=== PATIENT | male | born 1980 | race Caucasian/White ===

== ENCOUNTER 2023-06-20 05:03 | Emergency (ER) | payer OTHER, MEDICAID, SELFPAY ==
--- NOTE | 2023-06-20 05:08 | ED_ITS ---
HPI - General Adult General Chief complaint: Upper Respiratory Symptoms Stated complaint: sore throat t-3 has been out of us Time Seen by Provider: 06/20/23 05:05 Source: patient Mode of arrival: Ambulatory Limitations: no limitations History of Present Illness HPI narrative: 42-year-old male here for evaluation approximately 3 days of a sore throat. He states that it is more on the right side of his throat and going up to his right ear. No fevers. No coughing. Did recently travel back from [place]. No problems breathing. No dental pain Related Data Home Medications Medication Instructions Recorded Confirmed insulin aspart U-100 100 unit/mL 06/20/23 06/20/23 subcutaneous solution (Novolog U-100 Insulin aspart) Allergies Allergy/AdvReac Type Severity Reaction Status Date / Time No Known Drug Allergies Allergy Verified 06/20/23 05:15 Review of Systems Constitutional Constitutional: Reports system reviewed and no additional complaints, except as documented ENT Ears, Nose, Mouth, and Throat: Reports system reviewed and no additional complaints, except as documented Integumentary/Breasts Skin/Breast: Reports system reviewed and no additional complaints, except as documented Patient History Medical History (Updated 06/20/23 @ 05:40 by Basilio Garcia DO) High cholesterol Type 1 diabetes Social History Smoking Status: Never smoker Exam Initial Vital Signs Initial Vital Signs: Vital Signs Temperature 98 F 06/20/23 05:10 Pulse Rate 96 H 06/20/23 05:10 Respiratory Rate 18 06/20/23 05:10 Blood Pressure 160/91 H 06/20/23 05:10 Pulse Oximetry 99 06/20/23 05:10 Oxygen Delivery Method Room Air 06/20/23 05:10 HENDC Head: normal to inspection and normocephalic Ears: TM's normal bilaterally Throat: tonsils normal, uvula midline and posterior oropharynx abnormal edema (Right side) and erythema (Right side); no exudates Neck Lymphatic: lymphadenopathy (Enlarged right-sided submandibular lymphadenopathy) Resp Effort & Inspection: normal respiratory effort Skin General: no rashes or lesions noted Neuro General: patient alert, patient awake and moves all extremities Course Orders Ordered: ED Orders 06/20/23 05:16 Strep Grp A by PCR Rapid Stat Throat Culture Stat Dexamethasone (Dexamethasone 4 Mg Tablet) 12 mg PO NOW ONE Stop: 06/20/23 05:40 Penicillin G Benzathine (Penicillin G Benzathine 1,200,000 Unit/2 Ml Syringe) 1,200,000 unit IM NOW ONE Stop: 06/20/23 05:40 Vital Signs Vital signs: Vital Signs - 8 hr 06/20/23 05:10 Temperature 98 F Pulse Rate 96 H Respiratory Rate 18 Blood Pressure 160/91 H Pulse Oximetry 99 Oxygen Delivery Method Room Air Medical Decision Making Lab Data Lab results reviewed: Yes I reviewed the patient's lab results. Labs: Lab Results 06/20/23 Range/Units 05:18 Group A Strep (PCR) Positive H (Negative) MDM Narrative Medical decision making narrative: Patient does have strep throat. Low suspicion for peritonsillar abscess/retropharyngeal abscess. He does have a right-sided submandibular lymph node. Tolerating oral intake. Discussed options to include IM Bicillin versus oral antibiotics. Patient opted for the Bicillin. He was also given steroids for symptomatic treatment. No indication for admission to the hospital. He was given return precautions. He expressed understanding and agreement. Discharge Plan Departure Patient Disposition: Home Clinical Impression: Strep pharyngitis Instructions: DI for Strep Throat Activity Restrictions/Additional Instructions: Be sure that you were increasing your fluid intake. You can take Tylenol and ibuprofen for any discomfort. Return to the emergency department for worsening symptoms Prescriptions: No Action insulin aspart U-100 [Novolog U-100 Insulin aspart] 100 unit/mL solution Patient Comments: [NO ORIGINAL SIG] Stand Alone Forms: Patient Portal/API
[2023-06-20 05:10] VITALS: BP 160/91; PULSE 96; RESP 18; TEMP 36.6; O2SAT 99; BMI 24.4
[2023-06-20 05:31] LABS: Strep Grp A by PCR Rapid Positive (Negative)
[2023-06-20] MEDS: dexAMETHasone 4 MG TABLET 12 MG PO (05:49)
[2023-06-20] MEDS: PENICILLIN G BENZATHINE 1,200,000 UNIT/2 ML SYRINGE 1200000 UNIT IM (05:51)
[2023-06-20 05:56] VITALS: BP 118/82; PULSE 89; RESP 16; TEMP 36.6; O2SAT 98
== END 2023-06-20 05:59 | disposition home or self-care (01) ==
PROVIDERS: Emergency Provider Emergency Medicine
DX: J02.0 Streptococcal pharyngitis (principal); B95.0 Streptococcus, group A, as the cause of diseases classified elsewhere; E10.9 Type 1 diabetes mellitus without complications; Z79.4 Long term (current) use of insulin
CPT/HCPCS: 87651; 96372; 99283; J0561

== ENCOUNTER → 2024-07-17 09:49 | Outpatient (CLI) | payer OTHER, SELFPAY ==
[2024-07-17 19:53] LABS: Creatinine Urine Random 57.53 mg/dL
[2024-07-17 19:59] LABS: Microalbumin Urine Random < 0.6 mg/dL (0-1.6)
== END ==
PROVIDERS: PCP Physician Assistant; Visit Provider Physician Assistant
DX: E11.9 Type 2 diabetes mellitus without complications (principal)
CPT/HCPCS: 82043; 82570; 83036